=== PATIENT | male | born 1985 | race Caucasian/White ===

== ENCOUNTER 2016-08-14 14:00 | Emergency (ER) | payer OTHER ==
[2016-08-14] MEDS ORDERED: PENICILLIN G BENZATHINE 2,400,000 UNIT/4 ML PFS IM ONE (14:17)
[2016-08-14 14:33] VITALS: BP 138/80; PULSE 66; BMI 27.3
--- NOTE | 2016-08-14 15:11 | PDOC ---
History of Present Illness - General History Source: Patient Exam Limitations: No Limitations - History of Present Illness Initial Comments: 08/14/16 15:23 Patient is a 30 year old male with no significant past medical history who presents to the ED from Urgent care for a positive syphilis test. Patient had 2 new sexual partners since June 2016. Patients last STD testing was June 2016 that was negative. Patient had unprotected sexual encounter with men and presented to an urgent care a day later for STD testing. Patient was placed on prophylactic HIV medication, Truvada, while awaiting STD results. Patient was found to be positive for syphilis and negative for gonorrhea, HIV, chlamydia. Patient reports rashes to the palms and soles. He denies fever or chills. Denies genital rashes or discharge <Danya Zafar - Last Filed: 08/14/16 15:23> - General History Source: Patient Exam Limitations: No Limitations <Landen Mandel - Last Filed: 08/14/16 18:38> - General Chief Complaint: Revisit, Lab Variance Stated Complaint: POSITIVE STD TEST Time Seen by Provider: 08/14/16 14:16 Past History <Danya Zafar - Last Filed: 08/14/16 15:23> - Psycho/Social/Smoking Cessation Hx Anxiety: No Suicidal Ideation: No Smoking History: Current some day smoker Have you smoked in the past 12 months: Yes Number of Cigarettes Smoked Daily: 0 Information on smoking cessation initiated: Yes 'Breaking Loose' booklet given: 08/14/16 Hx Alcohol Use: Yes (SOCIAL) Drug/Substance Use Hx: No Substance Use Type: Marijuana <Landen Mandel - Last Filed: 08/14/16 18:38> - Past Medical History Allergies/Adverse Reactions: Allergies Allergy/AdvReac Type Severity Reaction Status Date / Time No Known Allergies Allergy Verified 08/14/16 14:24 Home Medications: Ambulatory Orders Emtricitabine/Tenofovir [Truvada] 1 tab PO DAILY 08/14/16 Review of Systems - Review of Systems Able to Perform ROS?: Yes Comments:: 08/14/16 15:23 GENERAL/CONSTITUTIONAL: No fever or chills. No weakness. HEAD, EYES, EARS, NOSE AND THROAT: No change in vision. No ear pain or discharge. No sore throat. CARDIOVASCULAR: No chest pain or shortness of breath. RESPIRATORY: No cough, wheezing, or hemoptysis. GASTROINTESTINAL: No nausea, vomiting, diarrhea or constipation. GENITOURINARY: No dysuria, frequency, or change in urination. MUSCULOSKELETAL: No joint or muscle swelling or pain. No neck or back pain. SKIN: (+)rash on palms and soles NEUROLOGIC: No headache, vertigo, loss of consciousness, or change in strength/ sensation. ENDOCRINE: No increased thirst. No abnormal weight change. HEMATOLOGIC/LYMPHATIC: No anemia, easy bleeding, or history of blood clots. ALLERGIC/IMMUNOLOGIC: No hives or skin allergy. <Danya Zafar - Last Filed: 08/14/16 15:23> *Physical Exam - Vital Signs Last Vital Signs Temp Pulse Resp BP Pulse Ox 98.5 F 66 15 138/80 100 08/14/16 14:04 08/14/16 14:04 08/14/16 14:04 08/14/16 14:04 08/14/16 14:04 - Physical Exam Comments: 08/14/16 15:24 GENERAL: Awake, alert, and fully oriented, in no acute distress HEAD: No signs of trauma EYES: PERRLA, EOMI, sclera anicteric, conjunctiva clear ENT: Auricles normal inspection, hearing grossly normal, nares patent, oropharynx clear without exudates. Moist mucosa NECK: Normal ROM, supple, no lymphadenopathy, JVD, or masses LUNGS: Breath sounds equal, clear to auscultation bilaterally. No wheezes, and no crackles HEART: Regular rate and rhythm, normal S1 and S2, no murmurs, rubs or gallops ABDOMEN: Soft, nontender, normoactive bowel sounds. No guarding, no rebound. No masses EXTREMITIES: Normal range of motion, no edema. No clubbing or cyanosis. No cords, erythema, or tenderness NEUROLOGICAL: Cranial nerves II through XII grossly intact. Normal speech, normal gait SKIN: (+)Several nodular lesions along the palms and soles of the feet, (+)Mild macular rash right mid back. Warm, Dry, normal turgor. GENITAL EXAM: (+)circymcised. no lesions, no rashes or drainage noted <Danya Zafar - Last Filed: 08/14/16 15:23> - Vital Signs Last Vital Signs Temp Pulse Resp BP Pulse Ox 98.5 F 66 15 138/80 100 08/14/16 14:04 08/14/16 14:04 08/14/16 14:04 08/14/16 14:04 08/14/16 14:04 <TequilaLanden - Last Filed: 08/14/16 18:38> Medical Decision Making - Medical Decision Making 08/14/16 15:07 A portion of this note was documented by scribe services under my direction. I have reviewed the details of the note, within reason, and agree with the documentation with the following case summary and management plan written by me. Patient treated in the ED. Nursing notes are reviewed and incorporated into the medical decision-making. Vital signs reviewed. Peripheral IV access obtained by the nurse, laboratory studies are drawn and sent, reviewed and interpreted by myself. Vital Signs Temp Pulse Resp BP Pulse Ox 98.5 F 66 15 138/80 100 08/14/16 14:04 08/14/16 14:04 08/14/16 14:04 08/14/16 14:04 08/14/16 14:04 30-year-old male with no past medical history sent in from urgent care for positive syphilis test. Patient reports that he has had 2 new sexual partner since June 2016. He was last tested for STDs in June 2016 and was negative. He had sexual encounter to half weeks ago that was unprotected with men. He was receptive. Patient went to an urgent care a day later and had gonorrhea, chlamydia, HIV and syphilis test ordered. Patient was started on prophylactic Truvada. His blood tests returned and the patient was negative for HIV, gonorrhea, chlamydia but tested positive for syphilis. Patient has the paperwork with him. He denies any fevers or chills or headaches or changes in mental status. States that he developed these rashes along the palms and soles. He denies any penile rashes or chancres. The patient's symptoms appear to be consistent with secondary syphilis. There appears to be no neural component at this time. We'll give him 2.4 million units of penicillin G and have the patient return next week in the following week for his second and third injection. We'll observe the patient for several hours to observe for potential JarischHerxheimer reaction. If he exhibits no symptoms, will allow the patient to be discharged. 08/14/16 15:26 Pt verbalizes understanding. If by 7 pm, the patient is asymptomatic, will have the patient discharged and followed up here in 1 week for his 2nd dose of penicillin. 08/14/16 17:42 Pt reported that he already discussed with the department of health and they already reached out to his partners 08/14/16 18:37 Pt has been observed for over 4 hours. No reaction. Will d/c home. <Landen Mandel - Last Filed: 08/14/16 18:38> *DC/Admit/Observation/Transfer - Attestations Scribe Attestion: 08/14/16 15:26 Documentation prepared by TOMMY Baron, acting as quality engineer medical device for Landen Mandel MD. 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 If you develop a reaction after taking the penicillin, you may be having something called JarischHerxheimer reaction. Some of the symptoms are fevers, chills, low blood pressure, lightheadedness, weakness. You must return to the ER immediately for further evaluation if this occurs.
[2016-08-14 17:14] VITALS: TEMP 98.8
== END 2016-08-14 18:45 | disposition home or self-care (01) ==
LOC: FER 14:00
DX: A51.49 Other secondary syphilitic conditions (principal)
CPT/HCPCS: 99281-25

== ENCOUNTER 2016-08-20 20:34 | Emergency (ER) | payer OTHER ==
[2016-08-20 20:46] VITALS: BP 138/97; PULSE 77; TEMP 99.1; BMI 27.3
[2016-08-20] MEDS ORDERED: PENICILLIN G BENZATHINE 2,400,000 UNIT/4 ML PFS IM ONE (20:58)
--- NOTE | 2016-08-20 20:58 | PDOC ---
History of Present Illness - General History Source: Patient Exam Limitations: No Limitations - History of Present Illness Initial Comments: 08/20/16 21:04 The patient is a 30 year old male with no significant past medical history, who is returning to the ED for a second penicillin shot. Patient was here on for the first penicillin shot after he was diagnosed with syphilis at an Urgent [facility]. Patient is negative for gonorrhea, HIV, chlamydia. <Atif Quevedo - Last Filed: 08/20/16 21:04> <Con Cruz - Last Filed: 08/21/16 00:38> - General Chief Complaint: Revisit, Lab Variance Stated Complaint: REVISIT FOR 2ND PCN SHOT, POSITIVE STD Past History <Atif Quevedo - Last Filed: 08/20/16 21:04> - Past Medical History Other medical history: POSITIVE FOR STD, TAKING TRUVADA PROPHYLACTICALLY - Psycho/Social/Smoking Cessation Hx Anxiety: No Suicidal Ideation: No Smoking History: Current every day smoker Have you smoked in the past 12 months: Yes Number of Cigarettes Smoked Daily: 0 Information on smoking cessation initiated: Yes 'Breaking Loose' booklet given: 08/20/16 Hx Alcohol Use: (WEEKLY) Drug/Substance Use Hx: No Substance Use Type: Marijuana <Con Cruz - Last Filed: 08/21/16 00:38> - Past Medical History Allergies/Adverse Reactions: Allergies Allergy/AdvReac Type Severity Reaction Status Date / Time No Known Allergies Allergy Verified 08/14/16 14:24 Home Medications: Ambulatory Orders Emtricitabine/Tenofovir [Truvada] 1 tab PO DAILY 08/14/16 Review of Systems - Review of Systems Able to Perform ROS?: Yes Comments:: 08/20/16 21:05 GENERAL/CONSTITUTIONAL: No fever or chills. No weakness. HEAD, EYES, EARS, NOSE AND THROAT: No change in vision. No ear pain or discharge. No sore throat. CARDIOVASCULAR: No chest pain or shortness of breath. RESPIRATORY: No cough, wheezing, or hemoptysis. GASTROINTESTINAL: No nausea, vomiting, diarrhea or constipation. GENITOURINARY: No dysuria, frequency, or change in urination. MUSCULOSKELETAL: No joint or muscle swelling or pain. No neck or back pain. SKIN: No rash NEUROLOGIC: No headache, vertigo, loss of consciousness, or change in strength/ sensation. ENDOCRINE: No increased thirst. No abnormal weight change. HEMATOLOGIC/LYMPHATIC: No anemia, easy bleeding, or history of blood clots. ALLERGIC/IMMUNOLOGIC: No hives or skin allergy. <Atif Quevedo - Last Filed: 08/20/16 21:04> *Physical Exam - Vital Signs Last Vital Signs Temp Pulse Resp BP Pulse Ox 99.1 F 77 18 138/97 98 08/20/16 20:35 08/20/16 20:35 08/20/16 20:35 08/20/16 20:35 08/20/16 20:35 - Physical Exam Comments: 08/20/16 21:05 GENERAL: Awake, alert, and fully oriented, in no acute distress HEAD: No signs of trauma EYES: PERRLA, EOMI, sclera anicteric, conjunctiva clear ENT: Auricles normal inspection, hearing grossly normal, nares patent, oropharynx clear without exudates. Moist mucosa NECK: Normal ROM, supple, no lymphadenopathy, JVD, or masses LUNGS: Breath sounds equal, clear to auscultation bilaterally. No wheezes, and no crackles HEART: Regular rate and rhythm, normal S1 and S2, no murmurs, rubs or gallops ABDOMEN: Soft, nontender, normoactive bowel sounds. No guarding, no rebound. No masses EXTREMITIES: Normal range of motion, no edema. No clubbing or cyanosis. No cords, erythema, or tenderness NEUROLOGICAL: Cranial nerves II through XII grossly intact. Normal speech, normal gait SKIN: Warm, Dry, normal turgor, no rashes or lesions noted. <Atif Quevedo - Last Filed: 08/20/16 21:04> - Vital Signs Last Vital Signs Temp Pulse Resp BP Pulse Ox 99.1 F 77 18 138/97 98 08/20/16 20:35 08/20/16 20:35 08/20/16 20:35 08/20/16 20:35 08/20/16 20:35 <Con Cruz - Last Filed: 08/21/16 00:38> Medical Decision Making - Medical Decision Making 08/21/16 00:38 shot #2 of 3 for secondary syphilis <Con Cruz - Last Filed: 08/21/16 00:38> *DC/Admit/Observation/Transfer - Attestations Scribe Attestion: 08/20/16 21:05 Documentation prepared by Atif Quevedo, acting as medical parasitologist for Con Cruz MD. 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
[2016-08-20] MEDS ORDERED: PENICILLIN G BENZATHINE 2,400,000 UNIT/4 ML PFS ONE (21:10)
== END 2016-08-20 22:30 | disposition home or self-care (01) ==
LOC: FER 20:34
DX: A51.49 Other secondary syphilitic conditions (principal); F17.210 Nicotine dependence, cigarettes, uncomplicated
CPT/HCPCS: 99281-25

== ENCOUNTER 2016-08-29 15:13 | Emergency (ER) | payer OTHER ==
--- NOTE | 2016-08-29 15:21 | PDOC ---
History of Present Illness - General Chief Complaint: Rash Stated Complaint: RETURN FOR 3RD DOSE OF MED Time Seen by Provider: 08/29/16 15:17 History Source: Patient Exam Limitations: No Limitations - History of Present Illness Initial Comments: 08/29/16 15:28 Patient is a 30 year old male returns to the ER for penicillin injection No complaints at this time No allergic reaction Pt denies rash Pt denies fevers or chills GENERAL/CONSTITUTIONAL: No: fever, chills, weakness, loss of appetite. HEAD, EYES, EARS, NOSE AND THROAT: No: change in vision, ear pain, discharge, sore throat, throat swelling. HEMATOLOGIC/LYMPHATIC: No: anemia, easy bleeding, swelling nodes. GENERAL: The patient is in no acute distress. MUSCULOSKELETAL: Back non-tender to palpation, no CVA tenderness SKIN: Warm, Dry, normal turgor, no rashes or lesions noted. Past History - Past Medical History Allergies/Adverse Reactions: Allergies Allergy/AdvReac Type Severity Reaction Status Date / Time No Known Allergies Allergy Verified 08/29/16 15:17 Home Medications: Ambulatory Orders Emtricitabine/Tenofovir [Truvada] 1 tab PO DAILY 08/14/16 - Psycho/Social/Smoking Cessation Hx Anxiety: No Suicidal Ideation: No Smoking History: Current every day smoker Have you smoked in the past 12 months: Yes Number of Cigarettes Smoked Daily: 0 'Breaking Loose' booklet given: 08/20/16 Hx Alcohol Use: (WEEKLY) Drug/Substance Use Hx: No Substance Use Type: Marijuana *DC/Admit/Observation/Transfer 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
[2016-08-29] MEDS ORDERED: PENICILLIN G BENZATHINE 2,400,000 UNIT/4 ML PFS IM ONE (15:26)
[2016-08-29 15:28] VITALS: BP 128/68; PULSE 73; TEMP 98; BMI 26.9
[2016-08-29] MEDS ORDERED: PENICILLIN G BENZATHINE 2,400,000 UNIT/4 ML PFS ONE (15:32)
== END 2016-08-29 15:56 | disposition home or self-care (01) ==
LOC: FER 15:13
DX: A51.49 Other secondary syphilitic conditions (principal); F17.210 Nicotine dependence, cigarettes, uncomplicated
CPT/HCPCS: 99281-25